=== PATIENT | male | born 1945 ===

== ENCOUNTER 2021-04-22 13:58 | Outpatient (CLI) | payer MEDICARE ==
[2021-04-22 16:43] LABS: Hemoglobin 14.4 g/dL (13.5-17.5); Mean Corpuscular HGB CONC 32.7 g/dL (32.0-36.0); Mean Corpuscular Volume 88.7 fl (81.2-95.1); Mean Platelet Volume 9.8 fl (7.4-10.4); Platelet Count 248 10x3/uL (150-450); RBC Distribution Width 13.9 % (11.5-14.5); Red Blood Cell (RBC) Count 4.96 10x6/uL (4.32-5.72)
[2021-04-22 16:54] LABS: Anion Gap 15 mmol/L (10-20); BUN (Urea Nitrogen) 26 mg/dL (8.4-25.7); Calc. Creatinine Clearance 0 mL/min (70-130); Calcium 9.1 mg/dL (7.8-10.44); Carbon Dioxide 25 mmol/L (23-31); Chloride 105 mmol/L (98-107); Glucose 89 mg/dL (83-110); Potassium 4.6 mmol/L (3.5-5.1); Sodium 140 mmol/L (136-145)
[2021-04-22 17:00] LABS: PTT 26.8 sec (22.0-33.0); Prothrombin Time 10.9 sec (9.5-12.1)
[2021-04-22 23:23] LABS: SARS-CoV-2 PCR by NAA Not Detected (NotDetected)
== END 2021-04-22 13:59 | disposition home or self-care (01) ==
LOC: CSHLAB 13:58
PROVIDERS: ATTEND Specialist
DX: Z01.818 Encounter for other preprocedural examination (principal); Z20.822 Contact with and (suspected) exposure to COVID-19
CPT/HCPCS: 71045; 80048; 85027; 85610; 85730; 93005; 93010; U0003; U0005

== ENCOUNTER 2021-04-26 06:42 | Day surgery (SDC) | payer MEDICARE ==
[2021-04-26] MEDS ORDERED: Phenylephrine 40 MG/NS 250 ML 0 ML ONE (07:31)
[2021-04-26] MEDS ORDERED: Nitroglycerin 50 MG/250 ML BOT 0 ML ONE (07:33)
[2021-04-26] MEDS ORDERED: Heparin 10,000 UNITS/ 10 ML VIAL ONE (07:33)
[2021-04-26] MEDS ORDERED: Verapamil 5 MG/2 ML VIAL ONE (07:34)
[2021-04-26] MEDS ORDERED: Adenosine 6 MG/2 ML VIAL ONE (07:34)
[2021-04-26] MEDS ORDERED: Sodium Chloride 0.9% 1,000 ML ONE (07:35)
[2021-04-26] MEDS ORDERED: Bivalirudin 250 MG VIAL ONE (07:35)
[2021-04-26] MEDS ORDERED: PHENYLEPHRINE-NS 100 MCG/ML 10 ML SYRINGE ONE (07:35)
[2021-04-26] MEDS ORDERED: Atropine Sulfate 0.4 mg/1 ml Vial ONE (07:38)
[2021-04-26] MEDS ORDERED: Lidocaine 1% (PF) 30 ML VIAL ONE (07:41)
[2021-04-26] MEDS ORDERED: Fentanyl 100 MCG/2 ML VIAL ONE (07:43)
[2021-04-26] MEDS ORDERED: Midazolam HCl 2 mg/2 ml Vial ONE (07:44)
[2021-04-26] MEDS ORDERED: FLU VACC QS2021-22(65YR UP)/PF 240 MCG/0.7 ML SYRINGE IM ONE (07:45)
== END 2021-04-26 12:20 | disposition home or self-care (01) ==
LOC: CSHCCL 06:42
PROVIDERS: ATTEND Specialist
DX: R55 Syncope and collapse (principal); Q25.49 Other congenital malformations of aorta; I25.10 Atherosclerotic heart disease of native coronary artery without angina pectoris; E78.2 Mixed hyperlipidemia; Z95.1 Presence of aortocoronary bypass graft; Z79.899 Other long term (current) drug therapy; Z79.82 Long term (current) use of aspirin; I65.23 Occlusion and stenosis of bilateral carotid arteries
CPT/HCPCS: 36222; 36227; C1760; J0153; J0461; J0583; J1644; J2001; J2250; J3010; J7050